=== PATIENT | male | born 1975 | race Caucasian/White ===

== ENCOUNTER 2018-12-29 20:31 | Emergency (ER) | payer BC ==
[~2018-12-29] VITALS: Ht 182.9 cm; Wt 86.2 kg
[2018-12-29] MEDS ORDERED: POTASSIUM CHLORIDE 20 MEQ TAB CR PO STA (21:02)
[2018-12-29] MEDS ORDERED: POTASSIUM CHLORIDE 20 MEQ TAB CR PO ONE (21:11)
[2018-12-29] MEDS ORDERED: ASPIRIN 325 MG TAB ONE (21:11)
[2018-12-29] MEDS ORDERED: ASPIRIN 325 MG TAB PO ONE (21:15)
--- NOTE | 2018-12-29 22:13 | Diagnostic Imaging Report ---
ADDENDUM #1 FINDINGS LUNGS: Subtle hazy opacity in the mid right lower lung. IMPRESSION: Subtle hazy opacity in the mid right lower lung may represent atelectasis or focal pneumonia. Recommend follow-up chest radiograph in 6-8 weeks to document resolution. Updated findings and impression discussed with Dr. Prado at 10:26 PM on 12/29/[address] Ceja via telephone. Signed by: Jose Luis Ceja DO on 12/29/2018 10:29 PM ORIGINAL REPORT EXAMINATION: CXR 1 [facility] INDICATION: chest pain COMPARISON: None FINDINGS: AP view TUBES and LINES: None. LUNGS: Lungs are well inflated. Mild biapical scarring, otherwise lungs are clear. There is no evidence of pneumonia or pulmonary edema. Subtle hazy opacity. PLEURA: No pleural effusion or pneumothorax. HEART AND MEDIASTINUM: The cardiomediastinal silhouette is unremarkable. BONES AND SOFT TISSUES: No acute osseous lesion. Soft tissues are unremarkable. UPPER ABDOMEN: No free air under the diaphragm. IMPRESSION: No acute thoracic radiographic abnormality. Signed by: Jose Luis Ceja DO on 12/29/2018 10:10 PM
== END 2018-12-29 22:30 | disposition home or self-care (01) ==
LOC: FSED 20:31
DX: R07.2 Precordial pain (principal); Z87.891 Personal history of nicotine dependence
CPT/HCPCS: 71045; 80053; 82553; 84484; 85025; 93005; 99284